=== PATIENT | male | born 1970 | race Native Hawaiian/Other Pacific Islander ===

== ENCOUNTER 2016-12-04 14:18 | Emergency (ER) | payer BC ==
[~2016-12-04] VITALS: Ht 185.4 cm; Wt 113.4 kg
[2016-12-04 14:25] VITALS: TEMP 98.2
[2016-12-04 16:00] VITALS: BP 158/90
== END 2016-12-04 16:00 | disposition home or self-care (01) ==
LOC: ED 14:18
DX: M54.5 Low back pain (principal)
CPT/HCPCS: 96372; 99283; J1020; J1100; J1885

== ENCOUNTER 2019-12-30 15:05 | Outpatient (CLI) | payer BC ==
[2019-12-30 16:24] LABS: POTASSIUM 3.9 mmol/L (3.6-5.2)
[2019-12-30 16:25] LABS: PLATELET COUNT 211 K/uL (142-355)
== END 2019-12-30 20:28 | disposition home or self-care (01) ==
LOC: RAD 15:05
PROVIDERS: Podiatrist
DX: Z01.810 Encounter for preprocedural cardiovascular examination (principal); Z01.811 Encounter for preprocedural respiratory examination; Z01.812 Encounter for preprocedural laboratory examination
CPT/HCPCS: 36415; 80053; 85027; 93005

== ENCOUNTER 2022-02-03 08:17 | Outpatient (CLI) | payer BC | END 2022-02-03 19:16 | disposition home or self-care (01) | LOC: RAD 08:17 | PROVIDERS: ATTEND Nurse Practitioner Family | DX: E79.0 Hyperuricemia without signs of inflammatory arthritis and tophaceous disease (principal); L40.0 Psoriasis vulgaris; M05.79 Rheumatoid arthritis with rheumatoid factor of multiple sites without organ or systems involvement; M06.4 Inflammatory polyarthropathy; M19.042 Primary osteoarthritis, left hand ==